=== PATIENT | male | born 1950 | race American Indian/Alaskan Native ===

== ENCOUNTER 2019-04-30 06:54 | Outpatient (CLI) | payer MEDICARE, OTHER ==
[2019-04-30 07:43] LABS: Blood Urea Nitrogen 20 mg/dL (9-20)
--- NOTE | 2019-05-10 11:25 | Magnetic Resonance Report ---
MRI pelvis with and without contrast INDICATION: Frequent urination and enlarged prostate. Prostate cancer Technique: Prostate MRI protocol was performed on a 1.5 Irene MRI without endorectal coil with low di ffusion DWI value of 500 rather than high bvalue of 1400. This limits characterization of peripheral zone lesions. The study was performed with and without IV contrast. We attempted to burn a CD and f ed ex to [employer] to import into [employer] CAD software, however, this was technically not possible on this initial study patient. FINDINGS: The prostate is enlarged measuring 4.7 cm transversely. Multiple BPH nodules are seen withi n the transitional zone with evidence of previous TURP procedure. Transitional zone: Multiple BPH nodules are present. No suspicious nodule or mass is seen. Peripheral zone: On the axial T2 images, there are striated peripheral hypodense lesions within the p osterior mid transitional zone. This likely reflects prostatitis. A focal round 5 mm T2 hypointense l esion is seen within the right lateral apical/mid peripheral zone on axial T2 image 26 which is a PIR ADS 3 lesion. Clinically significant prostate cancer is equivocal. No adenopathy is seen. 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 There is heterogeneous marrow signal intensity o n the axial T2 fast sequences without focal lesion seen on the T2-weighted images. No dedicated axial T1 weighted images were performed. IMPRESSION: 1. PI-RADS 3 lesion right lateral peripheral zone. Clinically significant prostate cancer is equivoca l. The lesion could not be targeted for URONAV US biopsy since there is no current IT way to access t he [employer] system. 2. Enlarged prostate with BPH nodules and previous TURP procedure. 3. Heterogeneous bone marrow signal intensity. If this patient has known prostate cancer, a nuc med b one scan is recommended to evaluate for possible skeletal metastases, however, I do not see a well-de fined lesion on the MRI images. 4. 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 Signer Name: Adan Amin MD Signed: 05/10/2019 11:21 AM Workstation Name: [id number]
== END 2019-04-30 06:55 | disposition home or self-care (01) ==
LOC: MRI 06:54
PROVIDERS: ATTEND Urology
DX: C61 Malignant neoplasm of prostate (principal); M16.11 Unilateral primary osteoarthritis, right hip
CPT/HCPCS: 36415; 72197; 82565; 84520; A9577